=== PATIENT | male | born 1970 | race African-American/Black ===

== ENCOUNTER 2017-10-07 17:03 | Emergency (ER) | payer MEDICARE, MEDICAID ==
[~2017-10-07] VITALS: Ht 180.3 cm; Wt 67.0 kg
[2017-10-07] MEDS ORDERED: ACETAMINOPHEN 500MG TABLET PO ONE (18:00)
[2017-10-07 20:07] VITALS: BP 128/72
== END 2017-10-07 20:08 | disposition home or self-care (01) ==
LOC: ER 17:03
DX: S00.03XA Contusion of scalp, initial encounter (principal); M54.5 Low back pain; F17.200 Nicotine dependence, unspecified, uncomplicated; F12.10 Cannabis abuse, uncomplicated; Y08.89XA Assault by other specified means, initial encounter; Y93.89 Activity, other specified; Y92.89 Other specified places as the place of occurrence of the external cause; Y99.8 Other external cause status
CPT/HCPCS: 72100; 99284